=== PATIENT | female | born 1980 | race Caucasian/White ===

== ENCOUNTER 2017-06-15 16:57 | Emergency (ER) | payer OTHER ==
--- NOTE | 2017-06-15 17:37 | EDM.PDOC ---
<Davidson Osorio - Last Filed: 06/15/17 20:57> ED HPI GENERAL MEDICAL PROBLEM - General Chief Complaint: Respiratory Problem Stated Complaint: FEVER, COUGH Time Seen by Provider: 06/15/17 17:06 - Related Data Allergies Allergy/AdvReac Type Severity Reaction Status Date / Time amoxicillin Allergy Hives Verified 06/15/17 17:11 Home Meds: Home Meds Azithromycin [IJD: Azithromycin] 1 tab PO QPM #4 tab 06/15/17 [Rx] Course - Vital Signs Last Recorded V/S: Last Vital Signs Temp 39.2 C H 06/15/17 17:05 Pulse 138 H 06/15/17 17:05 Resp 19 06/15/17 17:05 BP 150/77 H 06/15/17 17:05 Pulse Ox 100 06/15/17 17:05 - Orders/Labs/Meds Orders: Active Orders 24 hr Category Date Time Status Ang Chest [CT] Stat Exams 06/15/17 18:39 Taken Chest 2V [CR] Stat Exams 06/15/17 17:30 Taken CULTURE BLOOD [BC] Stat Lab 06/15/17 17:45 Received CULTURE BLOOD [BC] Stat Lab 06/15/17 17:55 Received Blood Culture x2 Reflex Set [OM.PC] Stat Oth 06/15/17 17:30 Ordered Labs: Laboratory Tests 06/15/17 06/15/17 06/15/17 Range/Units 17:45 17:45 17:45 WBC 7.75 (3.98-10.04) K/mm3 RBC 4.64 (3.98-5.22) M/mm3 Hgb 13.3 (11.2-15.7) gm/L Hct 38.7 (34.1-44.9) % MCV 83.4 (79.4-94.8) fl MCH 28.7 (25.6-32.2) pg MCHC 34.4 (32.2-35.5) g/dl RDW Std Deviation 37.7 (36.4-46.3) fL Plt Count 253 (182-369) K/mm3 MPV 8.9 L (9.4-12.3) fl Neutrophils % (Manual) 67 H (40-60) % Band Neutrophils % 1 (0-10) % Lymphocytes % (Manual) 26 (20-40) % Atypical Lymphs % 0 % Monocytes % (Manual) 5 (2-10) % Eosinophils % (Manual) 0 L (0.7-5.8) % Basophils % (Manual) 1 (0.1-1.2) Platelet Estimate Adequate Plt Morphology Comment Normal RBC Morph Comment Normal PT 10.3 (8.0-13.0) SECONDS INR 0.96 APTT 29 (22-36) SECONDS D-Dimer, Quantitative 1.14 H (0.19-0.59) mg/L Sodium 134 L (136-145) mEq/L Potassium 2.8 L (3.5-5.1) mEq/L Chloride 96 L (98-107) mEq/L Carbon Dioxide 26 (21-32) mEq/L Anion Gap 14.8 (5-15) BUN 10 (7-18) mg/dL Creatinine 0.8 (0.55-1.02) mg/dL Est Cr Clr Drug Dosing 77.63 mL/min Estimated GFR (MDRD) > 60 (>60) mL/min BUN/Creatinine Ratio 12.5 L (14-18) Glucose 95 (74-106) mg/dL Lactic Acid (0.4-2.0) mmol/L Calcium 9.2 (8.5-10.1) mg/dL Magnesium (1.8-2.4) mg/dl Total Bilirubin 0.5 (0.2-1.0) mg/dL AST 31 (15-37) U/L ALT 50 (14-59) U/L Alkaline Phosphatase 75 (46-116) U/L Total Protein 7.1 (6.4-8.2) g/dl Albumin 3.3 L (3.4-5.0) g/dl Globulin 3.8 gm/dL Albumin/Globulin Ratio 0.9 L (1-2) 18 06/15/17 Range/Units 17:45 17:55 WBC (3.98-10.04) K/mm3 RBC (3.98-5.22) M/mm3 Hgb (11.2-15.7) gm/L Hct (34.1-44.9) % MCV (79.4-94.8) fl MCH (25.6-32.2) pg MCHC (32.2-35.5) g/dl RDW Std Deviation (36.4-46.3) fL Plt Count (182-369) K/mm3 MPV (9.4-12.3) fl Neutrophils % (Manual) (40-60) % Band Neutrophils % (0-10) % Lymphocytes % (Manual) (20-40) % Atypical Lymphs % % Monocytes % (Manual) (2-10) % Eosinophils % (Manual) (0.7-5.8) % Basophils % (Manual) (0.1-1.2) Platelet Estimate Plt Morphology Comment RBC Morph Comment PT (8.0-13.0) SECONDS INR APTT (22-36) SECONDS D-Dimer, Quantitative (0.19-0.59) mg/L Sodium (136-145) mEq/L Potassium (3.5-5.1) mEq/L Chloride (98-107) mEq/L Carbon Dioxide (21-32) mEq/L Anion Gap (5-15) BUN (7-18) mg/dL Creatinine (0.55-1.02) mg/dL Est Cr Clr Drug Dosing mL/min Estimated GFR (MDRD) (>60) mL/min BUN/Creatinine Ratio (14-18) Glucose (74-106) mg/dL Lactic Acid 1.3 (0.4-2.0) mmol/L Calcium (8.5-10.1) mg/dL Magnesium 1.9 (1.8-2.4) mg/dl Total Bilirubin (0.2-1.0) mg/dL AST (15-37) U/L ALT (14-59) U/L Alkaline Phosphatase (46-116) U/L Total Protein (6.4-8.2) g/dl Albumin (3.4-5.0) g/dl Globulin gm/dL Albumin/Globulin Ratio (1-2) Meds: Medications Discontinued Medications Generic Name Dose Route Start Last Admin Trade Name Freq PRN Reason Stop Dose Admin Azithromycin 500 mg 06/15/17 17:58 06/15/17 18:02 Zithromax PO 06/15/17 17:59 500 mg ONETIME STA Administration Sodium Chloride 1,000 mls @ 150 mls/hr 06/15/17 18:45 06/15/17 18:55 Normal Saline IV 150 mls/hr ASDIRECTED NOEMY Administration Sodium Chloride 100 mls @ 75 mls/hr 06/15/17 19:15 06/15/17 19:37 Normal Saline IV 75 mls/hr ASDIRECTED NOEMY Administration Ceftriaxone Sodium 2 gm/ 100 mls @ 100 mls/hr 06/15/17 19:44 06/15/17 19:50 Sodium Chloride IV 06/15/17 20:43 100 mls/hr ONETIME ONE Administration Iopamidol 100 ml 06/15/17 19:07 06/15/17 19:37 Isovue-370 (76%) IVPUSH 06/15/17 19:08 100 ml ONETIME ONE Administration Potassium Chloride 40 meq 06/15/17 18:40 06/15/17 18:55 Klor-Con M20 PO 06/15/17 18:41 40 meq ONETIME ONE Administration Sodium Chloride 10 ml 06/15/17 19:07 06/15/17 19:37 Saline Flush FLUSH 10 ml ONETIME PRN Administration IV FLUSH - Re-Assessments/Exams Free Text/Narrative Re-Assessment/Exam: 06/15/17: Care was assumed from Dr. Stringer at change of shift. CT pulmonary angiogram has been completed. I cannot see any evidence of pulmonary embolism in the first or second branches but the study is of very poor quality without contrast emanating the rest of the pulmonary vasculature. The left upper lobar pneumonia however is very extensive and after discussion with the patient election made to give her a dose of intravenous antibiotic to speed up the healing process will plan will be infused 2 g of Rocephin intravenously. She can therefore take Zithromax as an outpatient as planned. She did receive the initial 500 mg per ora in the ED. She has a history of allergy to amoxicillin at age 31 and this was hives. 06/15/17 20:58 patient is completed her 2 g of intravenous Rocephin. She will therefore be discharged to home with plan to start Zithromax 250 mg once daily for the next [address] Stringer as previously written prescription this regard Departure - Departure Time of Disposition: 20:58 Disposition: Home, Self-Care 01 Condition: Fair Clinical Impression: Pneumonia Qualifiers: Pneumonia type: due to unspecified organism Laterality: left Lung location: upper lobe of lung Qualified Code(s): J18.1 - Lobar pneumonia, unspecified organism - Discharge Information Prescriptions: Azithromycin [IJD: Azithromycin] 1 tab PO QPM #4 tab Instructions: Community-Acquired Pneumonia, Adult Referrals: PCP,None [Primary Care Provider] - Laisha Braga MD [Physician] - Forms: ED Department Discharge, ED Return to Work/School Form Additional Instructions: You were seen in the emergency room for fever, shortness of breath, cough, and nausea. Workup in the ER included blood work, 2 sets of blood cultures, a chest x-ray, and a CT angiogram of your chest. Your workup found that you have pneumonia. You have been started on the antibiotic azithromycin. You're also given antibiotic- Rocephin 2 g intravenously while in the ED. [facility] Take one tablet each evening, starting tomorrow evening, 06/16/2017. Finish the entire prescription. Your workup also found that your potassium was low at 2.8. You were given potassium replacement in the ER. Please follow-up with Dr. Braga in the clinic this week, to have your potassium level rechecked. If any other problems, please do not hesitate to return to the ER. - My Orders Last 24 Hours: My Active Orders 06/15/17 17:30 Chest 2V [CR] Stat Blood Culture x2 Reflex Set [OM.PC] Stat 06/15/17 17:45 CULTURE BLOOD [BC] Stat 06/15/17 17:55 CULTURE BLOOD [BC] Stat 06/15/17 18:39 Ang Chest [CT] Stat - Assessment/Plan Last 24 Hours: My Active Orders 06/15/17 17:30 Chest 2V [CR] Stat Blood Culture x2 Reflex Set [OM.PC] Stat 06/15/17 17:45 CULTURE BLOOD [BC] Stat 06/15/17 17:55 CULTURE BLOOD [BC] Stat 06/15/17 18:39 Ang Chest [CT] Stat <Jcarlos Stringer - Last Filed: 06/16/17 07:13> ED HPI GENERAL MEDICAL PROBLEM - General Source of Information: Reports: Patient, Family ([place]) History Limitations: Reports: No Limitations - History of Present Illness INITIAL COMMENTS - FREE TEXT/NARRATIVE: The patient states that she has had a fever and a dry cough since Friday, 2017. She was seen at the walk-in clinic on 06/11/2017, where an influenza swab and rapid strep test were both negative. The patient was started on Tamiflu, which she took through 06/13/2017. She discontinued it because she felt that it was responsible for nausea that she was experiencing. Around that time the patient developed constipation and a sore chest, which comes in waves. Since she was not getting any better, she called the walk-in clinic 06/13/2017, and was prescribed Tessalon Perles. They did not help, therefore the patient actually was seen again at the walk-in clinic that afternoon. The patient states that no tests were done, but that she was prescribed a codeine cough syrup. The patient states that she has also been taking [id number] Tylenol and ibuprofen. She now presents with non-positional shortness of breath since this morning. No emesis or diarrhea. The patient states that she has had a fever up to 104 - most recently around 16 :00 this afternoon, as measured by an electronic ear thermometer. Here in the ED , the patient's temperature is found to be 102.5. She is tachycardic at 138 bpm. Her oxygen saturation is 100% on room air. The patient does not have a PCP. Past Medical History [employer] History: Reports: Oncologic (Cancer) History: Reports: Malignant Melanoma (Rt knee) - Past Surgical History Female Surgical History: Reports: Tubal Ligation Dermatological Surgical History: Reports: Other (See Below) (Melanoma excised from right knee lat May 2017) Social & Family History - Tobacco Use Smoking Status *Q: Never Smoker Second Hand Smoke Exposure: No - Caffeine Use Caffeine Use: Reports: None - Alcohol Use Alcohol Use History: Yes Alcohol Use Frequency: Socially - Recreational Drug Use Recreational Drug Use: No - Living Situation & Occupation Living situation: Reports: , with Spouse, with Family (2 kids) Occupation: Employed (Banker) ED ROS GENERAL - Review of Systems Review Of Systems: ROS reveals no pertinent complaints other than HPI. ED EXAM, GENERAL - Physical Exam Exam: See Below Exam Limited By: No Limitations General Appearance: Alert, WD/WN, Mild Distress (Appears uncomfortable. Feels febrile.) Eye Exam: Bilateral Eye: Normal Inspection Ears: Normal External Exam, Hearing Grossly Normal Nose: Normal Inspection, No Blood Throat/Mouth: Normal Inspection, Normal Lips, Normal Voice, No Airway Compromise Head: Atraumatic, Normocephalic Neck: Normal Inspection, Full Range of Motion Respiratory/Chest: No Respiratory Distress, Lungs Clear, Normal Breath Sounds, No Accessory Muscle Use. No: Crackles, Rhonchi, Wheezing Cardiovascular: Normal Peripheral Pulses, Regular Rate, Rhythm, No Gallop, No JVD, No Murmur, No Rub Peripheral Pulses: 4+: Radial (L), Radial (R) GI/Abdominal: Normal Bowel Sounds, Soft, Non-Tender, No Organomegaly, No Distention, No Abnormal Bruit, No Mass, Other (Obese) (Female) Exam: Deferred Rectal (Female) Exam: Deferred Back Exam: Normal Inspection, Full Range of Motion, NT Extremities: Normal Inspection, Normal Range of Motion, No Pedal Edema, Normal Capillary Refill Neurological: Alert, Oriented, Normal Cognition, No Motor/Sensory Deficits Psychiatric: Normal Affect Skin Exam: Warm, Dry, Intact, Normal Color, No Rash Course - Orders/Labs/Meds Labs: Laboratory Tests 06/15/17 06/15/17 06/15/17 Range/Units 17:45 17:45 17:45 WBC 7.75 (3.98-10.04) K/mm3 RBC 4.64 (3.98-5.22) M/mm3 Hgb 13.3 (11.2-15.7) gm/L Hct 38.7 (34.1-44.9) % MCV 83.4 (79.4-94.8) fl MCH 28.7 (25.6-32.2) pg MCHC 34.4 (32.2-35.5) g/dl RDW Std Deviation 37.7 (36.4-46.3) fL Plt Count 253 (182-369) K/mm3 MPV 8.9 L (9.4-12.3) fl Neutrophils % (Manual) 67 H (40-60) % Band Neutrophils % 1 (0-10) % Lymphocytes % (Manual) 26 (20-40) % Atypical Lymphs % 0 % Monocytes % (Manual) 5 (2-10) % Eosinophils % (Manual) 0 L (0.7-5.8) % Basophils % (Manual) 1 (0.1-1.2) Platelet Estimate Adequate Plt Morphology Comment Normal RBC Morph Comment Normal PT 10.3 (8.0-13.0) SECONDS INR 0.96 APTT 29 (22-36) SECONDS D-Dimer, Quantitative 1.14 H (0.19-0.59) mg/L Sodium 134 L (136-145) mEq/L Potassium 2.8 L (3.5-5.1) mEq/L Chloride 96 L (98-107) mEq/L Carbon Dioxide 26 (21-32) mEq/L Anion Gap 14.8 (5-15) BUN 10 (7-18) mg/dL Creatinine 0.8 (0.55-1.02) mg/dL Est Cr Clr Drug Dosing 77.63 mL/min Estimated GFR (MDRD) > 60 (>60) mL/min BUN/Creatinine Ratio 12.5 L (14-18) Glucose 95 (74-106) mg/dL Lactic Acid (0.4-2.0) mmol/L Calcium 9.2 (8.5-10.1) mg/dL Magnesium (1.8-2.4) mg/dl Total Bilirubin 0.5 (0.2-1.0) mg/dL AST 31 (15-37) U/L ALT 50 (14-59) U/L Alkaline Phosphatase 75 (46-116) U/L Total Protein 7.1 (6.4-8.2) g/dl Albumin 3.3 L (3.4-5.0) g/dl Globulin 3.8 gm/dL Albumin/Globulin Ratio 0.9 L (1-2) 06/15/17 06/15/17 Range/Units 17:45 17:55 WBC (3.98-10.04) K/mm3 RBC (3.98-5.22) M/mm3 Hgb (11.2-15.7) gm/L Hct (34.1-44.9) % MCV (79.4-94.8) fl MCH (25.6-32.2) pg MCHC (32.2-35.5) g/dl RDW Std Deviation (36.4-46.3) fL Plt Count (182-369) K/mm3 MPV (9.4-12.3) fl Neutrophils % (Manual) (40-60) % Band Neutrophils % (0-10) % Lymphocytes % (Manual) (20-40) % Atypical Lymphs % % Monocytes % (Manual) (2-10) % Eosinophils % (Manual) (0.7-5.8) % Basophils % (Manual) (0.1-1.2) Platelet Estimate Plt Morphology Comment RBC Morph Comment PT (8.0-13.0) SECONDS INR APTT (22-36) SECONDS D-Dimer, Quantitative (0.19-0.59) mg/L Sodium (136-145) mEq/L Potassium (3.5-5.1) mEq/L Chloride (98-107) mEq/L Carbon Dioxide (21-32) mEq/L Anion Gap (5-15) BUN (7-18) mg/dL Creatinine (0.55-1.02) mg/dL Est Cr Clr Drug Dosing mL/min Estimated GFR (MDRD) (>60) mL/min BUN/Creatinine Ratio (14-18) Glucose (74-106) mg/dL Lactic Acid 1.3 (0.4-2.0) mmol/L Calcium (8.5-10.1) mg/dL Magnesium 1.9 (1.8-2.4) mg/dl Total Bilirubin (0.2-1.0) mg/dL AST (15-37) U/L ALT (14-59) U/L Alkaline Phosphatase (46-116) U/L Total Protein (6.4-8.2) g/dl Albumin (3.4-5.0) g/dl Globulin gm/dL Albumin/Globulin Ratio (1-2) Meds: Medications Discontinued Medications Generic Name Dose Route Start Last Admin Trade Name Freq PRN Reason Stop Dose Admin Azithromycin 500 mg 06/15/17 17:58 06/15/17 18:02 Zithromax PO 06/15/17 17:59 500 mg ONETIME STA Administration Sodium Chloride 1,000 mls @ 150 mls/hr 06/15/17 18:45 06/15/17 18:55 Normal Saline IV 150 mls/hr ASDIRECTED NOEMY Administration Sodium Chloride 100 mls @ 75 mls/hr 06/15/17 19:15 06/15/17 19:37 Normal Saline IV 75 mls/hr ASDIRECTED NOEMY Administration Ceftriaxone Sodium 2 gm/ 100 mls @ 100 mls/hr 06/15/17 19:44 06/15/17 19:50 Sodium Chloride IV 06/15/17 20:43 100 mls/hr ONETIME ONE Administration Iopamidol 100 ml 06/15/17 19:07 06/15/17 19:37 Isovue-370 (76%) IVPUSH 06/15/17 19:08 100 ml ONETIME ONE Administration Potassium Chloride 40 meq 06/15/17 18:40 06/15/17 18:55 Klor-Con M20 PO 06/15/17 18:41 40 meq ONETIME ONE Administration Sodium Chloride 10 ml 06/15/17 19:07 06/15/17 19:37 Saline Flush FLUSH 10 ml ONETIME PRN Administration IV FLUSH - Re-Assessments/Exams Free Text/Narrative Re-Assessment/Exam: 06/15/17 17:52 Two-view chest radiograph reviewed. Cardiac silhouette is within normal limits. No pulmonary vascular congestion. No pleural effusions. There appears to be a left upper lobe infiltrate, consistent with lobar pneumonia. No pneumothorax. Formal read per the Radiologist pending. 06/15/17 17:57 Current guidelines recommend and advanced macrolide, such as azithromycin, for treatment of community-acquired pneumonia in a patient with no comorbidities. Blood cultures were obtained at the time of blood draw. 06/15/17 18:40 The patient's D-dimer has returned elevated at 1.14. Her renal function is normal, although her potassium has returned low at 2.8. I have ordered a CT angiogram along with normal saline IV fluid. I have added a magnesium level to the patient's blood already in the lab, but will give her 40 mEq oral potassium at this time, as well. 06/15/17 19:15 The magnesium level returned within normal limits. The patient was given 40 mEq oral potassium. The patient is currently over in CT scan. Case discussed with Dr. Osorio, and care of the patient turned over to him at this time, for change of shift. Departure - Departure Condition: Fair
[2017-06-15] MEDS ORDERED: Azithromycin 250 MG Tab PO STA (17:58)
[2017-06-15] MEDS ORDERED: Potassium Chloride 20 MEQ Tab.ER PO ONE (18:40)
[2017-06-15] MEDS ORDERED: Sodium Chloride 0.9% 1,000 ML IV SCH (18:45)
[2017-06-15] MEDS ORDERED: Iopamidol 755 Mg/ML 100 ML Bottle IVPUSH ONE (19:07)
[2017-06-15] MEDS ORDERED: Sodium Chloride 0.9% 10 ML Syringe FLUSH PRN (19:07)
[2017-06-15] MEDS ORDERED: Sodium Chloride 0.9% 100 ML IV SCH (19:15)
[2017-06-15] MEDS ORDERED: cefTRIAXone 2 GM in Sodium Chloride 0.9% 100 ML IV ONE (19:44)
--- NOTE | 2017-06-16 09:15 | CR ---
Chest: Two views of the chest were obtained. Comparison: No previous chest x-ray. Heart size and mediastinum are within normal limits. Left upper lobe pleural parenchymal density is seen. Right lung is clear. Bony structures are unremarkable. Impression: 1. Left upper lobe parenchymal density most likely representing pneumonia. Diagnostic code #3
--- NOTE | 2017-06-16 09:15 | CT ---
CT chest Technique: Multiple axial sections were obtained from above the lung apices inferiorly through the lung bases. Intravenous contrast was utilized. Findings: Study is suboptimal for evaluation of pulmonary emboli due to contrast timing. No evidence of pulmonary emboli within the main or within the segmental arteries but smaller subsegmental pulmonary emboli could easily be missed. There are several calcified left hilar lymph nodes being seen. Mediastinum and hilar regions show no adenopathy or mass. Small portion of the visualized upper abdominal structures are within normal limits. Parenchymal density with consolidation is seen within portions of the left upper lung and lingula as well as minimal change within the superior segment of both lower lungs. Bone window settings were reviewed which appear within normal limits for the patient's age. Impression: 1. Patchy areas of increased density on both sides of the chest, worse within the left upper lung. Findings presumably represent diffuse pneumonia. 2. Contrast enhancement suboptimal for evaluation of pulmonary embolism. No larger pulmonary emboli within the main or segmental arteries. Smaller subsegmental pulmonary emboli could easily be missed. 3. Other incidental findings. Diagnostic code #3 Agree with preliminary report issued by [facility] ([facility] preliminary report dictated on 06/15/17, 9:00 PM Central Time)
== END 2017-06-15 21:10 | disposition home or self-care (01) ==
LOC: JD.ED 16:57
DX: J18.9 Pneumonia, unspecified organism (principal); Z85.820 Personal history of malignant melanoma of skin; Z88.1 Allergy status to other antibiotic agents
CPT/HCPCS: 36415; 71046; 71275; 80053; 83605; 83735; 85025; 85379; 85610; 85730; 87040; 96361; 96365; 99284; A9270; J0696; J7030; J7040; J7050; Q9967